=== PATIENT | male | born 1935 | race Asian ===

== ENCOUNTER 2017-03-01 04:59 | Inpatient (IN) | payer OTHER ==
[~2017-03-01] VITALS: Ht 172.7 cm; Wt 70.8 kg
[~2017-03-01 04:59] MED LIST: ACET-514 PO; ALBU18HF IH; ESOM40CA PO; FLUT1DIS23 IH; IPRA14.76 IH; LANS30CA47 PO; LEVA15HF6 IH; TAMS-14 PO; TIOT18CA IH; TRIA60LO TP; [UNRECOGNIZED DRUG - CODE] PO
[2017-03-01] MEDS ORDERED: ALBUTEROL/IPRATROPIUM (NEB) 3 ML AMP HHN PRN (06:00)
[2017-03-01] MEDS ORDERED: morphine 2 MG INJ IV PRN (06:00)
[2017-03-01] MEDS ORDERED: NACL 0.9% 3 ML SYG IV SCH (06:00)
[2017-03-01] MEDS ORDERED: ONDANSETRON 4 MG INJ IV PRN (06:00)
[2017-03-01] MEDS ORDERED: ACETAMINOPHEN 325 MG TAB PO PRN (06:30)
[2017-03-01 06:45] VITALS: Ht 172.7 cm; Wt 70.8 kg
[2017-03-01 07:04] VITALS: BP 155/67; PULSE 77
[2017-03-01 08:04] VITALS: BP 155/74; RESP 18
[2017-03-01 08:19] LABS: ADD SCAN DIFF NO
[2017-03-01 08:31] LABS: ABNORMAL IP MESSAGE 1; HEMATOCRIT 40.5 % (42.0-52.0); HEMOGLOBIN 13.1 g/dl (14.0-18.0); MEAN CORPUSCULAR HEMOGLOBIN 31.9 pg (29.0-33.0); MEAN CORPUSCULAR HGB CONC 32.3 g/dl (32.0-37.0); MEAN CORPUSCULAR VOLUME 98.5 fl (82.0-101.0); MEAN PLATELET VOLUME 11.6 fl (7.4-10.4); PLATELET COUNT 219 10^3/UL (140-415); RED BLOOD COUNT 4.11 10^6/ul (4.70-6.10); RED CELL DISTRIBUTION WIDTH 13.7 % (11.5-14.5); WHITE BLOOD COUNT 24.5 10^3/ul (4.8-10.8)
--- NOTE | 2017-03-01 08:35 | HP ---
DATE OF ADMISSION: 03/01/2017 TIME SEEN: 6 a.m. CHIEF COMPLAINT: Shortness of breath HISTORY OF PRESENT ILLNESS: The patient is an 81-year-old male with a history of COPD, BPH, and RINA D, who presented to [facility] complaining of generalized weakness, fever, and shortness of breath. The patient has a chronic cough and also shortness of breath, but he was more short of ward ath than usual. Denies chest pain, nausea, vomiting. At [facility] his blood pressure was 132/70, heart rate 102, respiratory rate 18, temperature 98.9, oxygen saturation 93% on room air. He had a white count of 23,000, hemoglobin 14, platelet count 244,000. Sodium 138, potassium 4, chloride 101 , bicarbonate 24, BUN 16, creatinine 1.1, glucose of 131. A chest x-ray showed left more than right basilar atelectasis and scarring since his previous chest x-ray. The patient was treated with nebu lized albuterol and Atrovent as well as Solu-Medrol. The patient was transferred to [facility] since he is his capitated here. REVIEW OF SYSTEMS: A 12-point review of systems was performed and negative except as mentioned in H PI. PAST MEDICAL HISTORY: As per HPI. SOCIAL HISTORY: He has a [id number] history of smoking. ALLERGIES: NO KNOWN DRUG ALLERGIES. HOME MEDICATIONS: 1. Atrovent. 2. Albuterol. 3. Flomax. 4. Spiriva. 5. Tylenol. 6. Salicylate. 7. Advair. 8. Prevacid. 9. Triamcinolone lotion. PHYSICAL EXAMINATION: VITAL SIGNS: Vitals have not been documented here, but as mentioned above when he was at [facility] . GENERAL: Elderly male lying in bed in no acute distress. Initially sleepy, but arousable. HEENT: No obvious head deformity. Pupils are reactive to light. CARDIOVASCULAR: Regular rate and rhythm. LUNGS: Scattered wheezing. ABDOMEN: Soft, nontender, nondistended. Positive bowel sounds. EXTREMITIES: No edema. LABORATORY: Currently pending here, but labs from [facility] with results as I mentioned in the HPI . IMPRESSION: 1. Chronic obstructive pulmonary disease exacerbation. 2. Chronic bronchitis. 3. History of benign prostatic hypertrophy. 4. History of gastroesophageal reflux disease. 5. Upper respiratory infection versus early developing pneumonia. 6. Sepsis, as evidenced by leukocytosis and tachycardia at [facility], likely secondary to upper re spiratory infection versus early developing pneumonia. PLAN: He will be placed on oxygen, will be treated with nebulized albuterol/Atrovent. He will also be treated with Solu-Medrol. I will start him on Levaquin. We will send a urinalysis, blood cultu re, urine culture, and if possible, sputum for gram stain and culture. We will continue his Flomax for his BPH, and will be placed on PPI, given history of GERD. We will consider pulmonary consult. Further workup and management per clinical course. Dictated By: LAY MON/SILKE Conf#: [id number] DID#: [id number]
[2017-03-01 08:42] LABS: ALBUMIN 3.9 g/dl (3.3-4.9); ALBUMIN/GLOBULIN RATIO 1.21; BILIRUBIN,INDIRECT 0.7 mg/dl (0-1.1); BILIRUBIN,TOTAL 0.7 mg/dl (0.2-1.3); CALCIUM 9.1 mg/dl (8.4-10.2); CREATININE 0.99 mg/dl (0.61-1.24); MAGNESIUM 2.1 mg/dl (1.7-2.5); PHOSPHORUS 2.4 mg/dl (2.5-4.9); POTASSIUM 4.2 mmol/L (3.5-5.1); TOTAL PROTEIN 7.1 g/dl (6.1-8.1)
[2017-03-01] MEDS ORDERED: METHYLPREDNISOLONE 40 MG INJ IV SCH (09:00)
[2017-03-01 09:21] LABS: LYMPHOCYTES # 0.2 10^3/ul (0.8-2.9); MONOCYTE # 0.5 10^3/ul (0.3-0.9); NEUTROPHIL # 22.8 10^3/ul (1.6-7.5)
[2017-03-01] MEDS: TAMSULOSIN (SR) 0.4 MG CAP PO SCH (09:25)
[2017-03-01] MEDS: SALMETEROL/FLUTICASONE 250/50 INHA INH SCH ×2 (09:25→20:53)
[2017-03-01] MEDS: predniSONE 20 MG TAB PO SCH (09:25)
[2017-03-01] MEDS: TIOTROPIUM 18 MCG CAPSULE INHA DEV INH SCH (09:26)
[2017-03-01] MEDS: ALBUTEROL/IPRATROPIUM (NEB) 3 ML AMP HHN SCH ×4 (10:05→21:00)
[2017-03-01] MEDS: LANSOPRAZOLE 30 MG CAP PO SCH (12:22)
--- NOTE | 2017-03-01 13:12 | RADRPT ---
PROCEDURE: XR Chest. CLINICAL INDICATION: COPD. TECHNIQUE: Single frontal view of the chest was obtained. COMPARISON: Chest x-ray 11/28/2012. FINDINGS: The soft tissues are normal. There are degenerative osteophytes in the thoracic spine. The heart, cardiomediastinal silhouette and hilar structures are normal. The pulmonary vasculature is upper collier its of normal. There are vascular calcifications and mild ectasia of the left-sided aorta. There ar e areas of atelectasis in the right left lower lobes. No pleural effusion is noted. No definite gra nuloma is identified at this time. IMPRESSION: 1. 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 2. Spondylosis of the thoracic spine. 3. Bibasilar atelectasis with no evidence of active cardiopulmonary disease. RPTAT:AAJJ Physician Christina Date Time Electronically viewed and signed by Physician Christina on 03/01/2017 13:11 VÍCTOR/
--- NOTE | 2017-03-01 16:56 | PN ---
Date/Time of Note Date/Time of Note DATE: 03/01/17 TIME: 16:53 Assessment/Plan VTE Prophylaxis VTE Prophylaxis Intervention: SCD's Lines/Catheters IV Catheter Type (from Nrs): Saline Lock Assessment/Plan Assessment/Plan 81 yo M with pmhx notable for COPD admitted for SOB and fever. Imaging without clear evidence of pulm infiltrate. Most likely etio is COPD exacerbation 2/2 viral etio. PLAN cont prednisone burst, cont inhalers zpack for synergy/anti inflammatory impact and atypical coverage given no infiltrate on CXR no compelling indication for CAP treatment RVP sputum cultures BPH: cont home flomax discharge home once afebrile x 24 hours Subjective 24 Hr Interval Summary Free Text/Dictation Pt feels much better this afternoon. Reports breathing much closer to normal and fever largely resolved. Mandarin language line used to facilitate communication Exam/Review of Systems Vital Signs Vitals Vital Signs Date Time Temp Pulse Resp B/P Pulse Ox O2 Delivery O2 Flow Rate FiO2 03/01/17 13:42 83 18 97 21 03/01/17 08:04 98.3 155/74 Exam nad, pleasant no mrg mod wheezing in all lung funk abd soft no le edema Results Result Diagram: 03/01/17 0720 03/01/17 0720 Results 24 hrs Laboratory Tests Test 03/01/17 07:20 White Blood Count 24.5 H Red Blood Count 4.11 L Hemoglobin 13.1 L Hematocrit 40.5 L Mean Corpuscular Volume 98.5 Mean Corpuscular Hemoglobin 31.9 Mean Corpuscular Hemoglobin Concent 32.3 Red Cell Distribution Width 13.7 Platelet Count 219 Mean Platelet Volume 11.6 H Neutrophils % 93.0 H Band Neutrophils % 4.0 Lymphocytes % 1.0 L Monocytes % 2.0 Neutrophils # 22.8 H Lymphocytes # 0.2 L Monocytes # 0.5 Sodium Level 143 Potassium Level 4.2 Chloride Level 110 Carbon Dioxide Level 23 Anion Gap 14 Blood Urea Nitrogen 13 Creatinine 0.99 Glucose Level 147 Calcium Level 9.1 Phosphorus Level 2.4 L Magnesium Level 2.1 Total Bilirubin 0.7 Direct Bilirubin 0.00 Indirect Bilirubin 0.7 Aspartate Amino Transf (AST/SGOT) 26 Alanine Aminotransferase (ALT/SGPT) 33 Alkaline Phosphatase 58 Total Protein 7.1 Albumin 3.9 Globulin 3.20 Albumin/Globulin Ratio 1.21 Medications Medications Current Medications Ondansetron HCl (Zofran Inj) 4 mg Q6H PRN IV NAUSEA AND/OR VOMITING; Start 09/05 at 06:00 Morphine Sulfate (morphine) 2 mg Q4H PRN IV SEVERE PAIN LEVEL 7-10; Start 03/01 at 06:00 Acetaminophen (Tylenol Tab) 325 mg Q4 PRN PO pain; Start 03/01/17 at 06:30 Salmeterol Xinafoate/ Fluticasone (Advair 250/50 Diskus) 1 inh BID INH Last administered on 03/01/17 09:25; Admin Dose 1 INH; Start 03/01/17 at 09:00 Lansoprazole (Prevacid) 30 mg DAILY@06 PO Last administered on 03/01/17 12:22 ; Admin Dose 30 MG; Start 03/01/17 at 09:00 Tamsulosin HCl (Flomax) 0.4 mg DAILY PO Last administered on 03/01/17 09:25; Admin Dose 0.4 MG; Start 03/01/17 at 09:00 Tiotropium [place] (Spiriva) 1 inh DAILY INH Last administered on 03/01/17 09: 26; Admin Dose 1 INH; Start 03/01/17 at 09:00 Prednisone (Prednisone) 40 mg DAILY PO Last administered on 03/01/17 09:25; Admin Dose 40 MG; Start 03/01/17 at 09:00; Stop 03/06/17 at 08:59 Procedures Procedures CXR here with just atelectasis, no focal infiltrate BRENDAN GOODSON MD Mar 01, 2017 16:56
[2017-03-01] MEDS ORDERED: AZITHROMYCIN 250 MG TAB PO ONE (17:00)
[2017-03-01 21:03] VITALS: BP 141/67; RESP 16
[2017-03-02] MEDS: LANSOPRAZOLE 30 MG CAP PO SCH (05:21)
[2017-03-02 05:44] LABS: ADD SCAN DIFF NO
[2017-03-02 05:56] LABS: ABNORMAL IP MESSAGE 1; BASOPHILS % 0.1 % (0.0-2.0); HEMATOCRIT 37.7 % (42.0-52.0); HEMOGLOBIN 12.6 g/dl (14.0-18.0); LYMPHOCYTES # 1.2 10^3/ul (0.8-2.9); LYMPHOCYTES % 5.2 % (15.0-51.0); MEAN CORPUSCULAR HEMOGLOBIN 32.5 pg (29.0-33.0); MEAN CORPUSCULAR HGB CONC 33.4 g/dl (32.0-37.0); MEAN CORPUSCULAR VOLUME 97.2 fl (82.0-101.0); MEAN PLATELET VOLUME 11.2 fl (7.4-10.4); MONOCYTE # 1.3 10^3/ul (0.3-0.9); MONOCYTES % 5.9 % (0.0-11.0); NEUTROPHIL # 20.1 10^3/ul (1.6-7.5); PLATELET COUNT 217 10^3/UL (140-415); RED BLOOD COUNT 3.88 10^6/ul (4.70-6.10); RED CELL DISTRIBUTION WIDTH 13.7 % (11.5-14.5); WHITE BLOOD COUNT 22.9 10^3/ul (4.8-10.8)
[2017-03-02 06:50] LABS: CALCIUM 9.2 mg/dl (8.4-10.2); CREATININE 1.1 mg/dl (0.61-1.24); MAGNESIUM 2.3 mg/dl (1.7-2.5); PHOSPHORUS 2.7 mg/dl (2.5-4.9); POTASSIUM 4.2 mmol/L (3.5-5.1)
[2017-03-02 07:05] VITALS: BP 143/84; RESP 16
[2017-03-02] MEDS: predniSONE 20 MG TAB PO SCH (09:05)
[2017-03-02] MEDS: TIOTROPIUM 18 MCG CAPSULE INHA DEV INH SCH (09:05)
[2017-03-02] MEDS: SALMETEROL/FLUTICASONE 250/50 INHA INH SCH ×2 (09:05→20:33)
[2017-03-02] MEDS: TAMSULOSIN (SR) 0.4 MG CAP PO SCH (09:05)
[2017-03-02] MEDS: AZITHROMYCIN 250 MG TAB PO SCH (09:06)
[2017-03-02] MEDS ORDERED: GUAIFENESIN 20 MG/ML 5ML CUP PO PRN (16:00)
--- NOTE | 2017-03-02 16:02 | PN ---
Date/Time of Note Date/Time of Note DATE: 03/02/17 TIME: 15:59 Assessment/Plan VTE Prophylaxis VTE Prophylaxis Intervention: SCD's Lines/Catheters IV Catheter Type (from Nrs): Saline Lock Assessment/Plan Assessment/Plan 81 yo M with pmhx notable for COPD admitted for SOB and fever. Imaging without clear evidence of pulm infiltrate. Most likely etio is COPD exacerbation 2/2 viral etio. PLAN cont prednisone burst, cont inhalers zpack for synergy/anti inflammatory impact and atypical coverage given no infiltrate on CXR no compelling indication for CAP treatment RVP sputum cultures BPH: cont home flomax discharge home breathing and wheezing improve Subjective 24 Hr Interval Summary Free Text/Dictation Mandarin language line used for encounter Pt reports breathing not yet back to baseline Exam/Review of Systems Vital Signs Vitals Vital Signs Date Time Temp Pulse Resp B/P Pulse Ox O2 Delivery O2 Flow Rate FiO2 03/02/17 07:05 97.7 71 16 143/84 93 03/01/17 17:33 21 Intake and Output 03/01/17 03/01/17 03/02/17 15:00 23:00 07:00 Intake Total 920 ml 480 ml Balance 920 ml 480 ml Exam nad, sitting in chair still with mod wheezing in all lung funk no mrg abd soft no le edema Results Result Diagram: 03/02/17 0530 03/02/17 0530 Results 24 hrs Laboratory Tests Test 03/02/17 05:30 White Blood Count 22.9 H Red Blood Count 3.88 L Hemoglobin 12.6 L Hematocrit 37.7 L Mean Corpuscular Volume 97.2 Mean Corpuscular Hemoglobin 32.5 Mean Corpuscular Hemoglobin Concent 33.4 Red Cell Distribution Width 13.7 Platelet Count 217 Mean Platelet Volume 11.2 H Neutrophils % 88.0 H Lymphocytes % 5.2 L Monocytes % 5.9 Eosinophils % 0.0 Basophils % 0.1 Nucleated Red Blood Cells % 0.0 Neutrophils # 20.1 H Lymphocytes # 1.2 Monocytes # 1.3 H Eosinophils # 0.0 Basophils # 0.0 Nucleated Red Blood Cells # 0.0 Sodium Level 143 Potassium Level 4.2 Chloride Level 112 H Carbon Dioxide Level 25 Anion Gap 10 Blood Urea Nitrogen 17 Creatinine 1.10 Glucose Level 109 Calcium Level 9.2 Phosphorus Level 2.7 Magnesium Level 2.3 Medications Medications Current Medications Ondansetron HCl (Zofran Inj) 4 mg Q6H PRN IV NAUSEA AND/OR VOMITING; Start 09/05 at 06:00 Morphine Sulfate (morphine) 2 mg Q4H PRN IV SEVERE PAIN LEVEL 7-10; Start 03/01 at 06:00 Acetaminophen (Tylenol Tab) 325 mg Q4 PRN PO pain; Start 03/01/17 at 06:30 Salmeterol Xinafoate/ Fluticasone (Advair 250/50 Diskus) 1 inh BID INH Last administered on 03/02/17 09:05; Admin Dose 1 INH; Start 03/01/17 at 09:00 Lansoprazole (Prevacid) 30 mg DAILY@06 PO Last administered on 03/02/17 05:21 ; Admin Dose 30 MG; Start 03/01/17 at 09:00 Tamsulosin HCl (Flomax) 0.4 mg DAILY PO Last administered on 03/02/17 09:05; Admin Dose 0.4 MG; Start 03/01/17 at 09:00 Tiotropium [place] (Spiriva) 1 inh DAILY INH Last administered on 03/02/17 09: 05; Admin Dose 1 INH; Start 03/01/17 at 09:00 Prednisone (Prednisone) 40 mg DAILY PO Last administered on 03/02/17 09:05; Admin Dose 40 MG; Start 03/01/17 at 09:00; Stop 03/06/17 at 08:59 Azithromycin (Zithromax) 250 mg DAILY PO Last administered on 03/02/17 09:06; Admin Dose 250 MG; Start 03/02/17 at 09:00 BRENDAN GOODSON MD Mar 02, 2017 16:02
[2017-03-02 20:07] VITALS: BP 141/73; RESP 19
[2017-03-03] MEDS: LANSOPRAZOLE 30 MG CAP PO SCH (05:26)
[2017-03-03 07:40] VITALS: BP 142/65; RESP 18
[2017-03-03] MEDS: TIOTROPIUM 18 MCG CAPSULE INHA DEV INH SCH (08:54)
[2017-03-03] MEDS: SALMETEROL/FLUTICASONE 250/50 INHA INH SCH ×2 (08:54→20:36)
[2017-03-03] MEDS: predniSONE 20 MG TAB PO SCH (08:54)
[2017-03-03] MEDS: TAMSULOSIN (SR) 0.4 MG CAP PO SCH (08:54)
[2017-03-03] MEDS: AZITHROMYCIN 250 MG TAB PO SCH (08:54)
--- NOTE | 2017-03-03 11:09 | PN ---
Date/Time of Note Date/Time of Note DATE: 03/03/17 TIME: 10:58 Assessment/Plan VTE Prophylaxis VTE Prophylaxis Intervention: SCD's Lines/Catheters IV Catheter Type (from Nrs): Saline Lock Assessment/Plan Chief Complaint/Hosp Course Assessment and plan 1. COPD with exacerbation. Continue on bronchodilators. On steroid. Taper down as tolerated. Still with active bronchospasm. Await for clinical improvement. 2. Suspect URI (possible bronchitis). Remains on azithromycin. Continue with antitussives as needed for cough 3. History of BPH. Continue on Flomax Disposition and plan: Continue with bronchodilators and steroid. Will get physical therapy to follow. Discharge when medically stable Discussed plan of care with Dr. Preciado Problems: Subjective 24 Hr Interval Summary Free Text/Dictation still with some wheezing and some cough Exam/Review of Systems Vital Signs Vitals Vital Signs Date Time Temp Pulse Resp B/P Pulse Ox O2 Delivery O2 Flow Rate FiO2 03/03/17 07:40 98.6 75 18 142/65 96 03/03/17 05:38 21 Intake and Output 03/02/17 03/02/17 03/03/17 14:59 22:59 06:59 Intake Total 730 ml 200 ml Balance 730 ml 200 ml Exam Constitutional: alert, oriented Psych: nl mood/affect Head: normocephalic Eyes: nl conjunctiva Neck: No jvd Respiratory: other (some dry cough), wheezing Cardiovascular: regular rate and rhythm Gastrointestinal: non-tender, soft Musculoskeletal: nl extremities to inspection Extremities: normal pulses Neurological: [employer]ICIAN II-XII intact, nl mental status, nl speech Results Result Diagram: 03/02/1752903/02/17529 Medications Medications Current Medications Ondansetron HCl (Zofran Inj) 4 mg Q6H PRN IV NAUSEA AND/OR VOMITING; Start 09/05 at 06:00 Morphine Sulfate (morphine) 2 mg Q4H PRN IV SEVERE PAIN LEVEL 7-10; Start 03/01 at 06:00 Acetaminophen (Tylenol Tab) 325 mg Q4 PRN PO pain; Start 03/01/17 at 06:30 Salmeterol Xinafoate/ Fluticasone (Advair 250/50 Diskus) 1 inh BID INH Last administered on 03/03/17t 08:54; Admin Dose 1 INH; Start 03/01/17 at 09:00 Lansoprazole (Prevacid) 30 mg DAILY@06 PO Last administered on 03/03/17 05:26 ; Admin Dose 30 MG; Start 03/01/17 at 09:00 Tamsulosin HCl (Flomax) 0.4 mg DAILY PO Last administered on 03/03/17 08:54; Admin Dose 0.4 MG; Start 03/01/17 at 09:00 Tiotropium [place] (Spiriva) 1 inh DAILY INH Last administered on 03/03/17 08: 54; Admin Dose 1 INH; Start 03/01/17 at 09:00 Prednisone (Prednisone) 40 mg DAILY PO Last administered on 03/03/17 08:54; Admin Dose 40 MG; Start 03/01/17 at 09:00; Stop 03/06/17 at 08:59 Azithromycin (Zithromax) 250 mg DAILY PO Last administered on 03/03/17 08:54; Admin Dose 250 MG; Start 03/02/17 at 09:00 Guaifenesin (Robitussin Liquid Cup) 100 mg Q4H PRN PO COUGH; Start 03/02/17 at 16:00 KRISTINE ESPOSITO Mar 03, 2017 11:08
[2017-03-03 20:10] VITALS: BP 140/67; RESP 18
[2017-03-04 05:25] LABS: ADD SCAN DIFF NO
[2017-03-04 05:32] LABS: BASOPHILS % 0.1 % (0.0-2.0); HEMATOCRIT 37.4 % (42.0-52.0); HEMOGLOBIN 12.3 g/dl (14.0-18.0); LYMPHOCYTES # 1.2 10^3/ul (0.8-2.9); LYMPHOCYTES % 9.2 % (15.0-51.0); MEAN CORPUSCULAR HEMOGLOBIN 31.7 pg (29.0-33.0); MEAN CORPUSCULAR HGB CONC 32.9 g/dl (32.0-37.0); MEAN CORPUSCULAR VOLUME 96.4 fl (82.0-101.0); MEAN PLATELET VOLUME 11.4 fl (7.4-10.4); MONOCYTE # 0.9 10^3/ul (0.3-0.9); MONOCYTES % 6.5 % (0.0-11.0); NEUTROPHIL # 11.2 10^3/ul (1.6-7.5); NEUTROPHILS % 83.6 % (39.0-77.0); PLATELET COUNT 232 10^3/UL (140-415); RED BLOOD COUNT 3.88 10^6/ul (4.70-6.10); RED CELL DISTRIBUTION WIDTH 13.7 % (11.5-14.5); WHITE BLOOD COUNT 13.4 10^3/ul (4.8-10.8)
[2017-03-04] MEDS: LANSOPRAZOLE 30 MG CAP PO SCH (05:32)
[2017-03-04 06:07] LABS: CALCIUM 9.3 mg/dl (8.4-10.2); CREATININE 1.1 mg/dl (0.61-1.24); POTASSIUM 4.6 mmol/L (3.5-5.1)
[2017-03-04 07:45] VITALS: BP 144/65; RESP 18
[2017-03-04] MEDS: SALMETEROL/FLUTICASONE 250/50 INHA INH SCH ×2 (08:14→20:12)
[2017-03-04] MEDS: TIOTROPIUM 18 MCG CAPSULE INHA DEV INH SCH (08:14)
[2017-03-04] MEDS: AZITHROMYCIN 250 MG TAB PO SCH (08:15)
[2017-03-04] MEDS: predniSONE 20 MG TAB PO SCH (08:15)
[2017-03-04] MEDS: TAMSULOSIN (SR) 0.4 MG CAP PO SCH (08:15)
--- NOTE | 2017-03-04 12:12 | PN ---
DATE: 03/04/2017 INTERNAL MEDICINE PROGRESS NOTE SUBJECTIVE: Chart reviewed. No significant events noted. The patient is sitting in chair. Claims to be feeling better. PHYSICAL EXAMINATION: VITAL SIGNS: Blood pressure 144/65, pulse 76, respirations 18, temperature 98.6, saturating 96%. HEENT: Pupils are equal and reactive to light. Anicteric sclerae. NECK: Supple, no JVD noted, no cervical adenopathy noted, no carotid bruits heard. LUNGS: Diminished breath sounds bilaterally with few expiratory wheezes. CARDIOVASCULAR: S1, S2 normal. ABDOMEN: Soft, nontender. No organomegaly or masses noted. EXTREMITIES: No clubbing, cyanosis, or edema noted. NEUROLOGICAL: Awake and alert and no focal deficits. LABORATORY DATA: WBC 13.4, hemoglobin 12.3, hematocrit 37.4, platelets 232. Sodium 142, potassium 4.6, chloride 110, CO2 27, BUN 22, creatinine 1.1, glucose 97. IMPRESSION: 1. Chronic obstructive pulmonary disease exacerbation, slowly improving. 2. Upper respiratory infection with bronchitis. 3. History of BPH. PLAN: 1. Continue bronchodilators. 2. Taper steroids. 3. Physical therapy. 4. Most likely will be okay for discharge tomorrow morning. 5. Discussed with RN and case management. Dictated By: WENDY MARKS MD, MA/SILKE Conf#: [id number] DID#: [id number]
[2017-03-04 20:09] VITALS: BP 127/67; RESP 19
[2017-03-05] MEDS: LANSOPRAZOLE 30 MG CAP PO SCH (05:23)
[2017-03-05 07:35] VITALS: BP 153/79; RESP 18
[2017-03-05] MEDS: AZITHROMYCIN 250 MG TAB PO SCH (08:18)
[2017-03-05] MEDS: predniSONE 20 MG TAB PO SCH (08:18)
[2017-03-05] MEDS: TAMSULOSIN (SR) 0.4 MG CAP PO SCH (08:18)
[2017-03-05] MEDS: SALMETEROL/FLUTICASONE 250/50 INHA INH SCH (08:19)
[2017-03-05] MEDS: TIOTROPIUM 18 MCG CAPSULE INHA DEV INH SCH (08:28)
--- NOTE | 2017-03-05 10:18 | PDOCDIS ---
Discharge Instructions CONDITION Patient Condition: Stable HOME CARE INSTRUCTIONS: Special Diet: Regular ACTIVITY: Activity Restrictions: Slowly Increase Activity FOLLOW UP/APPOINTMENTS Appointments Please see your doctor in clinic, take your medications as prescribed. DEMETRIO CASTILLO. Mar 05, 2017 10:18
[2017-03-05] MEDS ORDERED: TIOT18CA IH (10:23)
[2017-03-05] MEDS ORDERED: ADV25050 INHALATION (10:23)
[2017-03-05] MEDS ORDERED: ALBU18HF INHALATION (10:23)
--- NOTE | 2017-03-05 10:48 | DS ---
DATE OF ADMISSION: 03/01/2017 DATE OF DISCHARGE: 03/05/2017 An 81-year-old male originally admitted on 03/01/2017, being discharged home on 03/05/2017. HOSPITAL COURSE: The patient came in with shortness of breath. He has a prior history of COPD, BPH , and GERD. He was diagnosed with chronic obstructive pulmonary disease exacerbation. He was admit enid to the med/surg floor. He has a history of chronic bronchitis. He was placed on steroids, breat armen treatments and also p.o. antibiotics. Over the course of his hospital stay his shortness breat h symptoms slowly improved. He was able to ambulate and tolerate a p.o. diet. He was stable by the time of discharge today on the and he will be discharged home today in improved condition. Hi s white blood cell count was coming down as well, he did not show any signs of any fevers, and he wi ll be discharged home today in improved condition. DISCHARGE MEDICATIONS: He will go home with: 1. Levaquin 750 mg p.o. daily for 3 days. 2. Prednisone 20 mg p.o. daily for 2 days, then 10 mg p.o. days for 2 days, then stop. 3. Ventolin HFA 2 puffs inhaled q.6h. p.r.n. 4. Advair 250/50 inhaled b.i.d. 5. Tylenol 325 p.o. q.4 p.r.n. 6. Combivent 14.7 grams inhaled daily. 7. Nexium 20 mg daily. 8. Prevacid 30 mg daily. 9. Xopenex HFA 500 mg daily. 10. Flomax 0.4 mg daily. 11. Spiriva 18 mcg inhaled daily. 12. Triamcinolone 16 mL topical daily p.r.n. Follow up with primary care doctor in clinic in the next 1 to 2 weeks. FINAL DIAGNOSES: 1. Shortness of breath secondary to chronic obstructive pulmonary disease exacerbation. 2. History of benign prostatic hypertrophy. 3. History of chronic bronchitis. 4. Gastroesophageal reflux disease. Time spent discharge the patient was 40 minutes. Dictated By: DEMETRIO MURCIA Conf#: [id number] DID#: [id number]
[2017-03-08 07:59] LABS: PARAINFLUENZA SRC SEE SCANNED REPORT.; RSV DIRECT DETECT SEE SCANNED REPORT.
== END 2017-03-05 14:40 | disposition home or self-care (01) | DRG 192 ==
LOC: PP2 05:35
PROVIDERS: ADMIT Internal Medicine; ATTEND Internal Medicine
DX: J44.1 Chronic obstructive pulmonary disease with (acute) exacerbation (principal); F17.200 Nicotine dependence, unspecified, uncomplicated; J06.9 Acute upper respiratory infection, unspecified; K21.9 Gastro-esophageal reflux disease without esophagitis; N40.0 Benign prostatic hyperplasia without lower urinary tract symptoms
CPT/HCPCS: 71010; 80048; 80053; 83735; 84100; 85025; 87275; 87276; 87279; 87280; 94640; 94664; 97163; J7512

== ENCOUNTER 2017-03-12 14:08 | Outpatient (CLI) | payer OTHER ==
[~2017-03-12] VITALS: Ht 172.7 cm; Wt 68.9 kg
[2017-03-12 14:08] VITALS: BP 120/62; PULSE 82; RESP 18; Ht 172.7 cm; Wt 68.9 kg
[~2017-03-12 14:08] MED LIST changes: +ADV25050 INHALATION; -ALBU18HF IH; +ALBU18HF INHALATION
--- NOTE | 2017-03-12 15:35 | PN ---
Date/Time of Note Date/Time of Note DATE: 03/12/17 TIME: 15:25 Outpatient Progress Note Chief Complaint Shortness of breath/BPH/PUD/ HPI Shortness of breath/patient has still slight shortness of breath, much improved , patient was recently hospitalized with acute exacerbation of COPD, no fever chill, no chest tightness, no hemoptysis, BPH/no frequency urgency, no suprapubic discomfort or distention, PUD/no nausea or vomiting, no abdominal distention, no hematemesis or melena, Review of Systems Const: No Fever, no chills, no Wt. loss, slight fatigue, normal appetite, no diaphoresis. Eyes: No pain, no discharge, no redness, no visual change, no foreign body. ENT: No pain, no bleeding, no congestion, no sore throat, no dysphagia, no discharge or rhinitis. Lymph: No adenopathy, no tender nodes, no lymphedema. Resp: Mild to moderate SOB, increased with exertion, reduced with rest, also slightly relieved with the medication, mild to moderate cough, no sputum, no wheezing, no chest pain. CV: No chest pain, no palpitaions, no HIGHTOWER, no PND, no edema. GI: Normal appetite, no pain, no nausea, no vomiting, no diarrhea, no blood, no constipation. : No frequency, no urgency, no dysuria, no hematuria, no flank pain, no discharge, no bleeding. Musc: No bone/joint pain, no back pain, no neck pain, no knee pain, no restricted ROM. Skin: No rash, no skin lesions, no erythema, no laceration, no bruising, no pruritus. Neuro: No CHEN, no dizziness, no syncope, no seizure, no focal-weakness. Endo: No polyuria, no polydypsia, no dry-skin, no temp-intolerance. Psych: No hallucinations, no depression, no anxiety, no suicidal ideation. Ext: No edema, no pain, no ulcer, no weakness. Physical Exam Vital Signs Date Time Temp Pulse Resp B/P Pulse Ox O2 Delivery O2 Flow Rate FiO2 03/12/17 14:08 98.6 82 18 120/62 91 Room Air General Appearance: A 81 year-old male who appears well-developed, well- nourished, in no acute distress. HEENT: Head normocephalic, atraumatic. Pupils equal, round, reactive to light and accommodate. Sclerae are no jaundice. Nasal turbinates pink without erythema or nasal discharge. Mucous membranes pink and moist without lesions. Oropharynx clear without any exudate or discharge. NECK: Supple. Trachea midline, No thyromegaly, No cervical lymphadenopathy, No mass, No carotid bruits, No JVD, Carotid pulses 2+ bilaterally. PULMONARY: Clear to auscultaion bilaterally, No retractions, Chest expansion symmetric bilaterally, no rales, bilateral ronchi, no dulness on percussion. CARDIAC: Normal SI and S2, Regular rate and rythm, no murmur, gallop, or rub. GASTROINTESTINAL: Abdomen is soft, non-tender, Non Rigid, No distention, Positive bowel sounds x4 quadrants, Liver normal. SKIN: Warm, dry, no rash, no bruise, no echmosis. EXTREMITIES: Bilateral lower extremities normal, no edema, no phlabitus, pulse palpable, no contracture. MUSCULOSKELETAL: Spine Normal, Non-tender, Normal range of motion, No swelling, no deformity, no clubbing, or cyanosis, the patient has no edema to bilateral lower extremities, dorsalis pedis pulses palpable bilaterally. NEUROLOGIC: The patient is awake, alert, oriented, responding to yes/no questions appropriately, moving all extremities, cranial nerve intact, normal strenght, normal power, normal coordination, normal gait. Allergies Coded Allergies: No Known Allergies (Verified Allergy, 07/09/11) PMH COPD/BPH/PUD/bronchitis/leukocytosis Social Hx Patient used to smoke before patient has stopped recently, no drinking, Family Hx Noncontributory Assessment/Plan Impression Acute exhibition of COPD BPH PUD History of leukocytosis Plan Patient education done about COPD, patient is taking inhaler regularly, patient doing much better, Patient education to take medication regular basis, if patient get worse to call us, Patient encouraged to follow with the primary care physician, Patient finished antibiotic, at present patient does not need any antibiotic, Medications Home Meds Active Scripts Salmeterol Xinaf/Fluticasone* (Advair*) 250-50 Diskus Inhaler, 1 INH INHALATION BID, #1 INHALER 3 Refills Prov:DEMETRIO CASTILLO 03/05/17 Albuterol Sulfate* (Ventolin HFA*) 18 Gm Hfa.aer.ad, 2 PUFF INHALATION Q6H, #1 INHALER 3 Refills Prov:DEMETRIO CASTILLO S. 03/05/17 Tiotropium [place]* (Spiriva*) 18 Mcg Cap.w.dev, 18 MCG IH DAILY for 30 Days, 3 Refills Prov:VALERY CASTILLOP S. 03/05/17 Reported Medications Esomeprazole Mag Trihydrate (Nexium) 40 Mg Capsule.dr, 40 MG PO DAILY 07/09/11 Acetaminophen (Acetaminophen) 325 Mg Tablet, 325 MG PO Q4 Y 07/09/11 Salsalate (Salsalate) 500 Mg Tablet, 500 MG PO 07/09/11 Tamsulosin Hcl* (Flomax*) 0.4 Mg Cap.sr.24h, 0.4 MG PO DAILY 07/09/11 Lansoprazole* (Prevacid*) 30 Mg Capsule.dr, 30 MG PO DAILY 07/09/11 Triamcinolone Acetonide (Triamcinolone Acetonide) 60 Ml Lotion, 60 ML TP DAILY Y 07/09/11 Levalbuterol* (Xopenex* HFA) 15 Gm Inha, 15 GM IH Q6 Y 07/09/11 Fluticasone/Salmeterol (Advair 250-50 Diskus) 1 Disk W/Dev Disk.w.dev, 1 DISK IH DAILY 07/09/11 Albuterol/Ipratropium (Combivent) 14.7 Gm Inha, 14.7 GM IH DAILY 07/09/11 Discontinued Reported Medications Albuterol Sulfate* (Ventolin HFA*) 18 Gm Hfa.aer.ad, 18 GM IH Q6 Y 07/09/11 BONI FLOYD MD Mar 12, 2017 15:35
== END 2017-03-12 16:45 | disposition home or self-care (01) ==
LOC: DCC 14:08
PROVIDERS: ATTEND Internal Medicine
DX: R06.02 Shortness of breath (principal); N40.0 Benign prostatic hyperplasia without lower urinary tract symptoms; K27.9 Peptic ulcer, site unspecified, unspecified as acute or chronic, without hemorrhage or perforation; J44.9 Chronic obstructive pulmonary disease, unspecified

== ENCOUNTER 2017-03-29 11:02 | Outpatient (CLI) | payer OTHER ==
[~2017-03-29] VITALS: Ht 172.7 cm; Wt 69.5 kg
[2017-03-29 11:24] VITALS: Ht 172.7 cm; Wt 69.5 kg
[2017-03-29 11:26] VITALS: BP 143/63; PULSE 77; RESP 18
--- NOTE | 2017-03-29 12:15 | PN ---
Date/Time of Note Date/Time of Note DATE: 03/29/17 TIME: 12:12 Outpatient Progress Note Chief Complaint COPD exacerbation/BPH/PUD HPI COPD exacerbation/patient was recently admitted with this acute exacerbation of COPD, patient was treated, patient still has slight cough without much expectoration, has minimal wheezing, BPH/no frequency urgency, no suprapubic discomfort or distention, no blood in the urine, PUD/no nausea vomiting, heartburn, Review of Systems Const: No Fever, no chills, no Wt. loss, no Fatigue, normal appetite, no diaphoresis. Eyes: No pain, no discharge, no redness, no visual change, no foreign body. ENT: No pain, no bleeding, no congestion, no sore throat, no dysphagia, no discharge or rhinitis. Lymph: No adenopathy, no tender nodes, no lymphedema. Resp: No SOB, mild to moderate cough, with little white sputum, slight wheezing , no chest pain. CV: No chest pain, no palpitaions, no HIGHTOWER, no PND, no edema. GI: Normal appetite, no pain, no nausea, no vomiting, no diarrhea, no blood, no constipation. : No frequency, no urgency, no dysuria, no hematuria, no flank pain, no discharge, no bleeding. Musc: No bone/joint pain, no back pain, no neck pain, no knee pain, no restricted ROM. Skin: No rash, no skin lesions, no erythema, no laceration, no bruising, no pruritus. Neuro: No CHEN, no dizziness, no syncope, no seizure, no focal-weakness. Endo: No polyuria, no polydypsia, no dry-skin, no temp-intolerance. Psych: No hallucinations, no depression, no anxiety, no suicidal ideation. Ext: No edema, no pain, no ulcer, no weakness. Physical Exam Vital Signs Date Time Temp Pulse Resp B/P Pulse Ox O2 Delivery O2 Flow Rate FiO2 03/29/17 11:26 98.3 77 18 143/63 93 Room Air General Appearance: A 82 year-old male who appears well-developed, well- nourished, in no acute distress. HEENT: Head normocephalic, atraumatic. Pupils equal, round, reactive to light and accommodate. Sclerae are no jaundice. Nasal turbinates pink without erythema or nasal discharge. Mucous membranes pink and moist without lesions. Oropharynx clear without any exudate or discharge. NECK: Supple. Trachea midline, No thyromegaly, No cervical lymphadenopathy, No mass, No carotid bruits, No JVD, Carotid pulses 2+ bilaterally. PULMONARY: Clear to auscultaion bilaterally, No retractions, Chest expansion symmetric bilaterally, no rales, bilateral few ronchi, no dulness on percussion. CARDIAC: Normal SI and S2, Regular rate and rythm, no murmur, gallop, or rub. GASTROINTESTINAL: Abdomen is soft, non-tender, Non Rigid, No distention, Positive bowel sounds x4 quadrants, Liver normal. SKIN: Warm, dry, no rash, no bruise, no echmosis. EXTREMITIES: Bilateral lower extremities normal, no edema, no phlabitus, pulse palpable, no contracture. MUSCULOSKELETAL: Spine Normal, Non-tender, Normal range of motion, No swelling, no deformity, no clubbing, or cyanosis, the patient has no edema to bilateral lower extremities, dorsalis pedis pulses palpable bilaterally. NEUROLOGIC: The patient is awake, alert, oriented, responding to yes/no questions appropriately, moving all extremities, cranial nerve intact, normal strenght, normal power, normal coordination, normal gait. Allergies Coded Allergies: No Known Allergies (Verified Allergy, 07/09/11) PMH No change Social Hx No change Family Hx No change Assessment/Plan Impression Acute exacerbation of COPD resolving BPH PUD Plan Patient education done about breathing treatment, patient was still not taking appropriately, discussed with the daughter, and explained, how to take all the medication, Patient to follow with the primary care physician, Any fever or hemoptysis or yellow phlegm contact primary care physician, Patient does not need any medication, patient has all supply, and patient has appointment with the primary care, Medications Home Meds Active Scripts Salmeterol Xinaf/Fluticasone* (Advair*) 250-50 Diskus Inhaler, 1 INH INHALATION BID, #1 INHALER 3 Refills Prov:DEMETRIO CASTILLO S. 03/05/17 Albuterol Sulfate* (Ventolin HFA*) 18 Gm Hfa.aer.ad, 2 PUFF INHALATION Q6H, #1 INHALER 3 Refills Prov:RAERICH,DEMETRIO S. 03/05/17 Tiotropium [place]* (Spiriva*) 18 Mcg Cap.w.dev, 18 MCG IH DAILY for 30 Days, 3 Refills Prov:DEMETRIO CASTILLO 03/05/17 Reported Medications Esomeprazole Mag Trihydrate (Nexium) 40 Mg Capsule.dr, 40 MG PO DAILY 07/09/11 Acetaminophen (Acetaminophen) 325 Mg Tablet, 325 MG PO Q4 Y 07/09/11 Salsalate (Salsalate) 500 Mg Tablet, 500 MG PO 07/09/11 Tamsulosin Hcl* (Flomax*) 0.4 Mg Cap.sr.24h, 0.4 MG PO DAILY 07/09/11 Lansoprazole* (Prevacid*) 30 Mg Capsule.dr, 30 MG PO DAILY 07/09/11 Triamcinolone Acetonide (Triamcinolone Acetonide) 60 Ml Lotion, 60 ML TP DAILY Y 07/09/11 Levalbuterol* (Xopenex* HFA) 15 Gm Inha, 15 GM IH Q6 Y 07/09/11 Fluticasone/Salmeterol (Advair 250-50 Diskus) 1 Disk W/Dev Disk.w.dev, 1 DISK IH DAILY 07/09/11 Albuterol/Ipratropium (Combivent) 14.7 Gm Inha, 14.7 GM IH DAILY 07/09/11 BONI FLOYD MD Mar 29, 2017 12:15
== END 2017-03-29 17:00 | disposition home or self-care (01) ==
LOC: DCC 11:02
PROVIDERS: ATTEND Internal Medicine
DX: J44.9 Chronic obstructive pulmonary disease, unspecified (principal)

== ENCOUNTER 2017-07-05 10:52 | Outpatient (CLI) | payer OTHER ==
[~2017-07-05] VITALS: Ht 167.6 cm; Wt 68.6 kg
[2017-07-05 11:20] VITALS: BP 176/73; PULSE 74; RESP 20; Ht 167.6 cm; Wt 68.6 kg
[2017-07-05] MEDS ORDERED: FAMO20TA18 PO (11:23)
--- NOTE | 2017-07-05 12:19 | PN ---
Date/Time of Note Date/Time of Note DATE: 07/05/17 TIME: 12:13 Outpatient Progress Note Chief Complaint Acute exacerbation of COPD/hypertension/asthma/BPH/PUD HPI Acute exacerbation of COPD/patient was recently hospitalized with acute exam patient with COPD, patient was given antibiotic and breathing treatment, patient still has minimal wheezing, and has cough, hemoptysis, chest pain, no fever chill, Hypertension/no headache or dizziness, patient not on any medication for blood pressure, Asthma/patient is a history of asthma, on medication, BPH/no frequency urgency, on medication, PUD/no nausea vomiting or heartburn, on medication, Review of Systems Const: No Fever, no chills, no Wt. loss, no Fatigue, normal appetite, no diaphoresis. Eyes: No pain, no discharge, no redness, no visual change, no foreign body. ENT: No pain, no bleeding, no congestion, no sore throat, no dysphagia, no discharge or rhinitis. Lymph: No adenopathy, no tender nodes, no lymphedema. Resp: Minimal SOB, mild to moderate cough, most of the time of white sputum, minimal wheezing, no chest pain. CV: No chest pain, no palpitaions, no HIGHTOWER, no PND, no edema. GI: Normal appetite, no pain, no nausea, no vomiting, no diarrhea, no blood, no constipation. : No frequency, no urgency, no dysuria, no hematuria, no flank pain, no discharge, no bleeding. Musc: No bone/joint pain, no back pain, no neck pain, no knee pain, no restricted ROM. Skin: No rash, no skin lesions, no erythema, no laceration, no bruising, no pruritus. Neuro: No CHEN, no dizziness, no syncope, no seizure, no focal-weakness. Endo: No polyuria, no polydypsia, no dry-skin, no temp-intolerance. Psych: No hallucinations, no depression, no anxiety, no suicidal ideation. Ext: No edema, no pain, no ulcer, no weakness. Physical Exam Vital Signs Date Time Temp Pulse Resp B/P Pulse Ox O2 Delivery O2 Flow Rate FiO2 07/05/17 11:20 98.0 74 20 176/73 94 Room Air General Appearance: A 82 year-old male who appears well-developed, well- nourished, in no acute distress. HEENT: Head normocephalic, atraumatic. Pupils equal, round, reactive to light and accommodate. Sclerae are no jaundice. Nasal turbinates pink without erythema or nasal discharge. Mucous membranes pink and moist without lesions. Oropharynx clear without any exudate or discharge. NECK: Supple. Trachea midline, No thyromegaly, No cervical lymphadenopathy, No mass, No carotid bruits, No JVD, Carotid pulses 2+ bilaterally. PULMONARY: Clear to auscultaion bilaterally, No retractions, Chest expansion symmetric bilaterally, no rales, a little few ronchi, no dulness on percussion. CARDIAC: Normal SI and S2, Regular rate and rythm, no murmur, gallop, or rub. GASTROINTESTINAL: Abdomen is soft, non-tender, Non Rigid, No distention, Positive bowel sounds x4 quadrants, Liver normal. SKIN: Warm, dry, no rash, no bruise, no echmosis. EXTREMITIES: Bilateral lower extremities no edema, no phlabitus, pulse palpable , no contracture. MUSCULOSKELETAL: Spine Normal, Non-tender, Normal range of motion, No swelling, no deformity, no clubbing, or cyanosis, the patient has no edema to bilateral lower extremities, dorsalis pedis pulses palpable bilaterally. NEUROLOGIC: The patient is awake, alert, oriented, responding to yes/no questions appropriately, moving all extremities, cranial nerve intact, normal strenght, normal power, normal coordination, normal gait. Allergies Coded Allergies: No Known Allergies (Verified Allergy, 07/09/11) PMH COPD/history of arrhythmias/hypertension/BPH/PUD Social Hx No smoking no drinking, Family Hx Noncontributory Assessment/Plan Impression Acute exacerbation of COPD Hypertension poorly controlled Asthma BPH PUD Plan Patient education done about his condition, and diseases, patient very high risk for repeated admission, Patient encouraged to follow with the primary care physician, Patient encouraged to take inhaler 4 times daily on a regular basis,/short acting albuterol and Atrovent, Patient is taking DuoNeb once a day, advised to take it twice a day, Patient blood pressure remains elevated, will start on medication, will monitor closely, for side effect of medication, Will start Norvasc 5 mg daily, will check the blood pressure may help to go to 10 mg, #30 Medications Home Meds Active Scripts Albuterol Sulfate* (Ventolin HFA*) 18 Gm Hfa.aer.ad, 2 PUFF INHALATION Q6H, #1 INHALER 3 Refills Prov:DEMETRIO CASTILLO S. 03/05/17 Tiotropium [place]* (Spiriva*) 18 Mcg Cap.w.dev, 18 MCG IH DAILY for 30 Days, 3 Refills Prov:ANNADEMETRIO S. 03/05/17 Reported Medications Famotidine* (Famotidine*) 20 Mg Tablet, 20 MG PO DAILY, #30 TAB 07/05/17 Acetaminophen (Acetaminophen) 325 Mg Tablet, 325 MG PO Q4 Y 07/09/11 Salsalate (Salsalate) 500 Mg Tablet, 500 MG PO 07/09/11 Tamsulosin Hcl* (Flomax*) 0.4 Mg Cap.sr.24h, 0.4 MG PO DAILY 07/09/11 Albuterol/Ipratropium (Combivent) 14.7 Gm Inha, 14.7 GM IH DAILY 07/09/11 Discontinued Reported Medications Esomeprazole Mag Trihydrate (Nexium) 40 Mg Capsule.dr, 40 MG PO DAILY 07/09/11 Lansoprazole* (Prevacid*) 30 Mg Capsule.dr, 30 MG PO DAILY 07/09/11 Triamcinolone Acetonide (Triamcinolone Acetonide) 60 Ml Lotion, 60 ML TP DAILY Y 07/09/11 Levalbuterol* (Xopenex* HFA) 15 Gm Inha, 15 GM IH Q6 Y 07/09/11 Fluticasone/Salmeterol (Advair 250-50 Diskus) 1 Disk W/Dev Disk.w.dev, 1 DISK IH DAILY 07/09/11 Discontinued Scripts Salmeterol Xinaf/Fluticasone* (Advair*) 250-50 Diskus Inhaler, 1 INH INHALATION BID, #1 INHALER 3 Refills Prov:DEMETRIO CASTILLO S. 03/05/17 BONI FLOYD MD Jul 05, 2017 12:19
== END 2017-07-05 17:04 | disposition home or self-care (01) ==
LOC: DCC 10:52
PROVIDERS: ATTEND Internal Medicine
DX: J44.1 Chronic obstructive pulmonary disease with (acute) exacerbation (principal); I10 Essential (primary) hypertension; N40.0 Benign prostatic hyperplasia without lower urinary tract symptoms; K27.9 Peptic ulcer, site unspecified, unspecified as acute or chronic, without hemorrhage or perforation
CPT/HCPCS: G0463; Z7500